=== PATIENT | male | born 1975 | race American Indian/Alaskan Native ===

== ENCOUNTER 2021-11-10 21:57 | Emergency (ER) | payer SELFPAY ==
--- NOTE | 2021-11-11 01:36 | Emergency Department Report ---
ED Headache HPI - General Chief Complaint: Headache Stated Complaint: HBP/MIGRAINES - History of Present Illness Initial Comments: Patient is a 46-year-old -[place] male with a history of hypertension and who is noncompliant with his medications presents to the ED with complaint of left frontal sinus headache that radiates to the left temporal area for the last 3 weeks, worse in the last 2 days. Patient states that the headache has been intermittent and only worse when he goes to sleep or when he wakes up. Patient states that he has not been on his blood pressure medication for over 1 month. Patient denies chest pain, shortness of breath, change in vision, dizziness, nausea, vomiting, palpitations, sore throat, neck pain, change in vision, back pain or abdominal pain. Timing/Duration: 1 week, waxing and waning Quality: moderate, pressure, sharp, throbbing Head Injury Location: frontal (Left frontal), temporal (Left temporal) Recent Head Trauma: no recent headache/trauma Modifying Factors: improves with: medication Associated Symptoms: denies symptoms. denies: confusion, fatigue, facial pain, fever/chills, flushing, loss of consciousness, nausea/vomiting, numbness in legs/feet, rash, seizures, sinus infection, stiff neck, vision changes, weakness Allergies/Adverse Reactions: Allergies No Known Allergies Allergy (Unverified 10/08/15 17:19) Home Medications: Ambulatory Orders Sulfamethoxazole/Trimethoprim [Bactrim DS TAB] 1 each PO BID #14 tablet 10/08/15 Butalb/Acetamin/Caff 50-325-40 [Fioricet 50-325-40] 1 - 2 tab PO Q6HR PRN #15 tab 11/11/21 Ibuprofen [Motrin] 800 mg PO Q8HR PRN #30 tablet 11/11/21 amLODIPine 10 mg PO DAILY #30 tab 11/11/21 hydroCHLOROthiazide [HCTZ] 25 mg PO QDAY #30 tablet 11/11/21 ED Review of Systems ROS: Stated complaint: HBP/MIGRAINES Other details as noted in HPI Constitutional: malaise, other (Uncontrolled hypertension). denies: chills, fever Eyes: denies: eye pain, eye discharge, vision change ENT: denies: ear pain, throat pain Respiratory: denies: cough, shortness of breath, wheezing Cardiovascular: denies: chest pain, palpitations Endocrine: no symptoms reported Gastrointestinal: denies: abdominal pain, nausea, diarrhea Genitourinary: denies: urgency, dysuria Musculoskeletal: denies: back pain, joint swelling, arthralgia Skin: denies: rash, lesions Neurological: headache. denies: weakness, paresthesias Psychiatric: denies: anxiety, depression Hematological/Lymphatic: denies: easy bleeding, easy bruising ED Past Medical Hx - Past Medical History Previous Medical History?: Yes Hx Hypertension: Yes - Social History Smoking Status: Current Every Day Smoker Substance Use Type: Alcohol, Non Opiate Pain - Medications Home Medications: Home Medications Medication Instructions Recorded Confirmed Last Taken Type Sulfamethoxazole/Trimethoprim 1 each PO BID #14 tablet 10/08/15 Unknown Rx [Bactrim DS TAB] Butalb/Acetamin/Caff 50-325-40 1 - 2 tab PO Q6HR PRN #15 tab 11/11/21 Unknown Rx [Fioricet 50-325-40] Ibuprofen [Motrin] 800 mg PO Q8HR PRN #30 tablet 11/11/21 Unknown Rx amLODIPine 10 mg PO DAILY #30 tab 11/11/21 Unknown Rx hydroCHLOROthiazide [HCTZ] 25 mg PO QDAY #30 tablet 11/11/21 Unknown Rx ED Physical Exam - General Limitations: No Limitations General appearance: alert, in no apparent distress - Head Head exam: Present: atraumatic, normocephalic, normal inspection - Eye Eye exam: Present: normal appearance, PERRL, EOMI Pupils: Present: normal accommodation - ENT ENT exam: Present: normal exam, normal orophraynx, mucous membranes moist, TM's normal bilaterally, normal external ear exam - Neck Neck exam: Present: normal inspection, full ROM. Absent: tenderness - Respiratory Respiratory exam: Present: normal lung sounds bilaterally. Absent: respiratory distress, wheezes, rales, rhonchi, chest wall tenderness, accessory muscle use - Cardiovascular Cardiovascular Exam: Present: regular rate, normal rhythm, normal heart sounds. Absent: systolic murmur, diastolic murmur, rubs, gallop - GI/Abdominal GI/Abdominal exam: Present: soft, normal bowel sounds. Absent: tenderness, guarding, rebound, hyperactive bowel sounds, hypoactive bowel sounds, organomegaly, pulsatile mass - Extremities Exam Extremities exam: Present: normal inspection, full ROM, normal capillary refill - Back Exam Back exam: Present: normal inspection, full ROM. Absent: tenderness, CVA tenderness (R), CVA tenderness (L), muscle spasm, paraspinal tenderness, vertebral tenderness - Neurological Exam Neurological exam: Present: alert, oriented X3, CN II-XII intact, normal gait, reflexes normal - Psychiatric Psychiatric exam: Present: normal affect, normal mood - Skin Skin exam: Present: warm, dry, intact, normal color. Absent: rash ED Course Vital Signs 11/10/21 22:31 Temperature 98.9 F Pulse Rate 98 H Respiratory 16 Rate Blood Pressure 155/100 O2 Sat by Pulse 100 Oximetry ED Medical Decision Making - Medical Decision Making This is a 46-year-old -[place] male with a history of hypertension and who is noncompliant with his medications presents to the ED with complaint of left frontal sinus headache that radiates to the left temporal area for the last 3 weeks, worse in the last 2 days. Patient states that the headache has been intermittent and only worse when he goes to sleep or when he wakes up. Patient states that he has not been on his blood pressure medication for over 1 month. In the ED, patient is alert and oriented x3 and is not in any distress. Based on the patient's history and physical exam findings, the patient was discharged home on medications for headache and also his blood pressure medications were refilled. Patient was advised to follow-up with his primary care physician in 7 to 10 days for reevaluation or return to the ED immediately if symptoms get worse. - Differential Diagnosis Tension headache; cluster headache; sinus headache; uncontrolled hypertensi Critical care attestation.: If time is entered above; I have spent that time in minutes in the direct care of this critically ill patient, excluding procedure time. ED Disposition Clinical Impression: Uncontrolled hypertension, stage 1 Tension type headache Qualifiers: Headache chronicity pattern: episodic headache Intractability: not intractable Qualified Code(s): G44.219 - Episodic tension-type headache, not intractable Disposition: 01 HOME / SELF CARE / HOMELESS Is pt being admited?: No Does the pt Need Aspirin: No Condition: Stable Instructions: Hypertension (ED), Cluster Headache, [id number], Tension Headache, Adult, [id number], Managing Your Hypertension, Hypertension, Adult, [id number] Additional Instructions: Take medication with food, drink plenty of fluids and follow-up with your primary care physician in 7 to 10 days for reevaluation. Return to the ED i mmediately if symptoms get worse. Prescriptions: amLODIPine 10 mg PO DAILY #30 tab Butalb/Acetamin/Caff 50-325-40 [Fioricet 50-325-40] 1 - 2 tab PO Q6HR PRN #15 tab PRN Reason: Headache hydroCHLOROthiazide [HCTZ] 25 mg PO QDAY #30 tablet Ibuprofen [Motrin] 800 mg PO Q8HR PRN #30 tablet PRN Reason: Pain , Severe (7-10) Referrals: ISAC HOWARD MD [Staff Physician] - 7-10 days Time of Disposition: 01:39 Print Language: S[place]
[2021-11-11 01:49] VITALS: BP 157/101
== END 2021-11-11 02:08 | disposition home or self-care (01) ==
LOC: ED 21:57
DX: I10 Essential (primary) hypertension (principal); G44.209 Tension-type headache, unspecified, not intractable; F17.200 Nicotine dependence, unspecified, uncomplicated; Z72.89 Other problems related to lifestyle; Z79.899 Other long term (current) drug therapy
CPT/HCPCS: 99282